=== PATIENT | male | born 1985 | race African-American/Black ===

== ENCOUNTER 2017-12-27 13:38 | Outpatient (CLI) | payer OTHER ==
--- NOTE | 2017-12-27 15:03 | Diagnostic Imaging Report ---
Clinical Indication:Wrist pain Technique: 3 views of the right wrist Comparison: None Findings: No acute fractures. No dislocations. The joint spaces are preserved Impression: Negative
== END 2017-12-27 15:38 | disposition home or self-care (01) ==
LOC: RAD 13:38
DX: M25.531 Pain in right wrist (principal)